=== PATIENT | male | born 1960 | race Caucasian/White ===

== ENCOUNTER 2018-05-26 20:13 | Emergency (ER) | payer MEDICARE, MEDICAID ==
[2018-05-26 20:25] VITALS: BP 130/89
[2018-05-26] MEDS ORDERED: Tetan/Diph/Pertus SYR(Tdap)* 0.5 ML SYR(BOOSTRIX) use SYR IM ONE (20:25)
--- NOTE | 2018-05-26 20:26 | UC ---
Skin Complaint HPI - HPI Summary HPI Summary: 57 yo male presents with puncture wound to right foot. He tells me that about 1 hour [employer] he was walking around his house barefoot and stepped on a sewing needle. He is adamant that he removed the whole needle and that it did not break off in his foot. He tried to continue walking around, but his foot hurt. He is unsure the date of his last tetanus and is requesting this today. He is currently ambulatory without assistance. - History of Current Complaint Chief Complaint: UCSkin Time Seen by Provider: 05/26/18 20:25 Stated Complaint: PUNCTURE WOUND Hx Obtained From: Patient Onset/Duration: Sudden Onset Onset Severity: Severe Current Severity: Severe Pain Intensity: 10 Pain Scale Used: 0-10 Numeric - Allergy/Home Medications Allergies/Adverse Reactions: Allergies Allergy/AdvReac Type Severity Reaction Status Date / Time No Known Allergies Allergy Verified 05/26/18 20:24 PMH/Surg Hx/FS Hx/Imm Hx Endocrine History: Diabetes, Dyslipidemia Cardiovascular History: Hypertension Psychological History: Anxiety, Depression Other History Of: Negative For: Anticoagulant Therapy - Surgical History Surgical History: Yes Surgery Procedure, Year, and Place: fess, gall bladder - Family History Known Family History: Positive: Hypertension - Social History Alcohol Use: None Substance Use Type: None Smoking Status (MU): Never Smoked Tobacco Review of Systems All Other Systems Reviewed And Are Negative: Yes Constitutional: Positive: Negative Skin: Positive: Other - Puncture wound right foot Respiratory: Positive: Negative Cardiovascular: Positive: Negative Musculoskeletal: Positive: Other: - Right foot pain Neurological: Positive: Negative Psychological: Positive: Negative Physical Exam - Summary Physical Exam Summary: GENERAL: NAD. WDWN. No pain distress. SKIN: RIGHT FOOT: At plantar foot pad there is a 1mm puncture wound with scant bleeding. TTP. No FB appreciated. No active drainage, erythema, edema, or warmth. CHEST: No accessory muscle use. Breathing comfortably and in no distress. CV: Pulses intact. Cap refill <2seconds NEURO: Alert. PSYCH: Age appropriate behavior. Triage Information Reviewed: Yes Vital Signs: Initial Vital Signs Temp 98.2 F 05/26/18 20:21 Pulse 105 05/26/18 20:21 Resp 18 05/26/18 20:21 BP 130/89 05/26/18 20:21 Pulse Ox 95 05/26/18 20:21 Vital Signs Reviewed: Yes Course/Dx - Course Course Of Treatment: tdap updated today. I highly recommended an XR of his foot today to insure no FB within his foot, but he declined and is adamant that he removed all of the needle. Myself and nursing staff made him aware that a retained FB could cause infection and continued pain - he voiced understanding and continued to decline XR. Area was cleansed with NS. Pt was provided with a post-op shoe for comfort. Given his diabetes, I will place him on keflex for prophylactic infection. - Diagnoses Provider Diagnosis: Puncture wound of foot Discharge - Sign-Out/Discharge Documenting (check all that apply): Patient Departure All imaging exams completed and their final reports reviewed: No Studies - Discharge Plan Condition: Stable Disposition: HOME Prescriptions: Cephalexin CAP* [Keflex CAP*] 500 mg PO BID #14 cap Patient Education Materials: Puncture Wound (DC) Referrals: Tevin Alcocer MD [Primary Care Provider] - Additional Instructions: If you develop a fever, shortness of breath, chest pain, new or worsening symptoms - please call your PCP or go to the ED. 1) Please apply a band-aid until area is well healed (likely 2-3 days) 2) Your tetanus vaccine was updated today - Billing Disposition and Condition Condition: STABLE Disposition: Home - Attestation Statements Provider Attestation: I was available for consult. This patient was seen by the LEYLA. The patient was not presented to, seen by, or examined by me. -Jatinder
== END 2018-05-26 21:00 | disposition home or self-care (01) ==
LOC: UCEAST 20:13
DX: S91.331A Puncture wound without foreign body, right foot, initial encounter (principal); W26.8XXA Contact with other sharp object(s), not elsewhere classified, initial encounter; Y92.009 Unspecified place in unspecified non-institutional (private) residence as the place of occurrence of the external cause; Z23 Encounter for immunization; E11.9 Type 2 diabetes mellitus without complications; E78.5 Hyperlipidemia, unspecified; I10 Essential (primary) hypertension; F41.9 Anxiety disorder, unspecified; F32.9 Major depressive disorder, single episode, unspecified
CPT/HCPCS: 90471; 90715; 99213; G0463